=== PATIENT | female | born 1965 | race Caucasian/White ===

== ENCOUNTER 2016-08-27 15:35 | Inpatient (IN) | payer OTHER ==
[~2016-08-27] VITALS: Ht 175.3 cm; Wt 90.0 kg
[2016-08-27 16:35] LABS: ADD SCAN DIFF NO
[2016-08-27 16:39] LABS: BASOPHILS % 0.3 % (0.0-2.0); EOSINOPHILS # 0.1 10^3/ul (0.0-0.5); HEMATOCRIT 38.4 % (37.0-47.0); HEMOGLOBIN 13.2 g/dl (12.0-16.0); LYMPHOCYTES # 1.8 10^3/ul (0.8-2.9); LYMPHOCYTES % 19.9 % (15.0-51.0); MEAN CORPUSCULAR HEMOGLOBIN 29.5 pg (29.0-33.0); MEAN CORPUSCULAR HGB CONC 34.4 g/dl (32.0-37.0); MEAN CORPUSCULAR VOLUME 85.9 fl (82.0-101.0); MEAN PLATELET VOLUME 9.6 fl (7.4-10.4); MONOCYTE # 0.8 10^3/ul (0.3-0.9); MONOCYTES % 8.4 % (0.0-11.0); NEUTROPHIL # 6.3 10^3/ul (1.6-7.5); PLATELET COUNT 283 10^3/UL (140-415); RED BLOOD COUNT 4.47 10^6/ul (4.20-5.40); RED CELL DISTRIBUTION WIDTH 12.9 % (11.5-14.5); WHITE BLOOD COUNT 9.1 10^3/ul (4.8-10.8)
[2016-08-27] MEDS: SOD CHLORIDE 0.9% 1,000 ML IV SCH ×2 (17:00→21:40)
--- NOTE | 2016-08-27 17:01 | ERD ---
ER Documentation Chief Complaint Date/Time DATE: 08/27/16 TIME: 16:58 Chief Complaint FROM [facility] [place]Y [place]GERY HPI Patient is a 51-year-old female with a past medical history of diabetes and hypertension who presents to the ED for lab work prior to receiving surgery today. Patient states that she was sent here from her doctor, . Patient denies fever or chills. Patient states that she has an ankle fracture and will be having surgery. Denies numbness or tingling. She has no other complaints. ROS All systems reviewed and are negative except as per history of present illness. PMhx/Soc Medical and Surgical Hx: pt denies Medical Hx, pt denies Surgical Hx History of Surgery: No Anesthesia Reaction: No Hx Neurological Disorder: No Hx Respiratory Disorders: No Hx Cardiac Disorders: Yes (Hypertension) Hx Psychiatric Problems: No Hx Miscellaneous Medical Probl: No Hx Alcohol Use: Yes (OCCASIONALLY) Hx Substance Use: Yes (MARAJUANA) Hx Tobacco Use: No Smoking Status: Never smoker FmHx Family History: No coronary disease, No diabetes, No other Physical Exam Vitals Vital Signs Date Time Temp Pulse Resp B/P Pulse Ox O2 Delivery O2 Flow Rate FiO2 08/27/16 15:40 98.2 64 20 167/84 99 Physical Exam GENERAL: Well-developed, well-nourished female. Appears in no acute distress. HEAD: Normocephalic, atraumatic. EYES: Pupils are equally reactive bilaterally. EOMs grossly intact. No conjunctival erythema. ENT: Moist mucous membranes. No uvula deviation. No kissing tonsils. No exudates. NECK: Supple. No lymphadenopathy or thyromegaly. No meningismus. negative kernig. negative brudinski. LUNG: Clear to auscultation bilaterally. No rhonchi, wheezing, rales or coarse breath sounds. HEART: Regular rate and rhythm. No murmurs, rubs or gallops. Extremities:patient has a long leg splint. NEUROLOGIC: Alert and oriented. SKIN: Normal color. Warm and dry. No rashes or lesions. Capillary refill < 2 seconds Result Diagram: 08/27/16 1630 Results 24 hrs Laboratory Tests Test 08/27/16 16:30 White Blood Count 9.110^3/ul Red Blood Count 4.4710^6/ul Hemoglobin 13.2g/dl Hematocrit 38.4% Mean Corpuscular Volume 85.9fl Mean Corpuscular Hemoglobin 29.5pg Mean Corpuscular Hemoglobin Concent 34.4g/dl Red Cell Distribution Width 12.9% Platelet Count 25053^3/UL Mean Platelet Volume 9.6fl Neutrophils % 70.0% Lymphocytes % 19.9% Monocytes % 8.4% Eosinophils % 1.0% Basophils % 0.3% Nucleated Red Blood Cells % 0.0/100WBC Neutrophils # 6.310^3/ul Lymphocytes # 1.810^3/ul Monocytes # 0.810^3/ul Eosinophils # 0.110^3/ul Basophils # 0.010^3/ul Nucleated Red Blood Cells # 0.010^3/ul Current Medications Medications (Trade) Dose Ordered Sig/Linda Route PRN Reason Start Time Stop Time Status Last Admin Dose Admin Sodium Chloride (NS) 1,000 ml @ 200 mls/hr Q5H IV 08/27/16 17:00 Procedures/MDM ER COURSE: I kept the patient and/or family informed of laboratory and diagnostic imaging results throughout the emergency room course. MEDICAL DECISION MAKING: This is a 51-year-old female who presents with labwork for surgery. Vital signs were reviewed. Patient is afebrile. Patient is not hypoxic. Patient is nontoxic or ill-appearing. I spoke with her orthopedic surgeon Dr Mcclellan who stated that patient will be admitted to medicine and will be medically cleared there. Blood work, EKG and chest x-ray were ordered. I spoke with my supervising physician Dr. pruitt who will admit patient. patient is stable at transfer to ED1. I explained the plan to patient who understood and agreed. Patient did not have any questions prior to transfer to ED 1 Departure Diagnosis: Primary Impression: Encounter for laboratory test Condition: Stable MARY ANDUJAR PA-C Aug 27, 2016 17:01
[2016-08-27 17:10] LABS: ALBUMIN/GLOBULIN RATIO 1.78; BILIRUBIN,INDIRECT 0.5 mg/dl (0-1.1); BILIRUBIN,TOTAL 0.5 mg/dl (0.2-1.3); CALCIUM 9.6 mg/dl (8.4-10.2); CREATININE 0.9 mg/dl (0.44-1.00); POTASSIUM 3.7 mmol/L (3.5-5.1); TOTAL PROTEIN 7.8 g/dl (6.1-8.1)
[2016-08-27 17:21] LABS: ADD UMIC NO; UR ASCORBIC ACID NEGATIVE (NEGATIVE); UR BILIRUBIN (Dip) NEGATIVE (NEGATIVE); UR BLOOD (Dip) NEGATIVE (NEGATIVE); UR CLARITY SLIGHTLY CLOUDY (CLEAR); UR COLOR YELLOW (YELLOW); UR GLUCOSE (Dip) NEGATIVE (NEGATIVE); UR KETONES (Dip) TRACE mg/dL (NEGATIVE); UR LEUKOCYTE ESTERASE (Dip) NEGATIVE Leu/ul (NEGATIVE); UR MUCUS FEW /HPF (NONE SEEN); UR NITRITE (Dip) NEGATIVE (NEGATIVE); UR RBC 2 /HPF (0-5); UR SPECIFIC GRAVITY (Dip) 1.025 (1.003-1.030); UR TOTAL PROTEIN (Dip) NEGATIVE (NEGATIVE); UR UROBILINOGEN (Dip) NEGATIVE (NEGATIVE)
--- NOTE | 2016-08-27 17:29 | RADRPT ---
PROCEDURE: XR Chest. CLINICAL INDICATION: Preop, right ankle fracture TECHNIQUE: AP view of the chest was obtained. COMPARISON: None. FINDINGS: The cardiomediastinal silhouette is within normal limits. The lungs are clear. No pleural effusion or pneumothorax is identified. The visualized osseous structures are intact. IMPRESSION: No of active cardiopulmonary disease. RPTAT: HH .Froy Morales MD, Date Time Electronically viewed and signed by .Froy Morales MD, on 08/27/2016 17:29 .O/
[2016-08-27 17:52] LABS: INR 0.99; PARTIAL THROMBOPLASTIN TIME 26.5 Sec (25.0-35.0); PROTIME 13.1 Sec (12.2-14.2)
[2016-08-27] MEDS ORDERED: HYDROCODONE/APAP (5/325) TAB PO ONE (18:30)
[2016-08-27] MEDS ORDERED: HYDR12.58 PO (18:44)
[2016-08-27] MEDS ORDERED: SPIR100T31 PO (18:45)
[2016-08-27] MEDS ORDERED: ATOR20TA38 PO (18:45)
[2016-08-27] MEDS ORDERED: BUPR-34 PO (18:47)
[2016-08-27] MEDS ORDERED: METF500T4 PO (18:48)
[2016-08-27] MEDS ORDERED: CITA10TA72 PO (18:49)
[2016-08-27 20:01] VITALS: TEMP 97.6
[2016-08-27] MEDS ORDERED: ONDANSETRON 4 MG INJ IV STA (20:04)
[2016-08-27] MEDS ORDERED: morphine 4 MG/ML VIAL IV STA (20:04)
[2016-08-27 20:35] VITALS: BP 133/73; RESP 18
[2016-08-27 20:55] VITALS: Ht 175.3 cm; Wt 90.0 kg
[2016-08-27] MEDS ORDERED: GLUCAGON 1 MG INJ IM PRN (21:30)
[2016-08-27] MEDS ORDERED: GLUCOSE GEL 15 GRAM TUBE BUCCAL PRN (21:30)
[2016-08-27] MEDS ORDERED: GLUCOSE GEL 15 GRAM TUBE PO PRN ×2 (21:30)
[2016-08-27] MEDS ORDERED: DEXTROSE 50% 50 ML SYRINGE IV PRN ×2 (21:30)
[2016-08-27] MEDS: D5W-0.45 NACL + KCL 20 MEQ 1,000 ML IV SCH (21:50)
[2016-08-27] MEDS: morphine 2 MG INJ IV PRN (23:53)
[2016-08-28] VITALS (31 sets, daily range): BP systolic 112–157; BP diastolic 55–80; PULSE 66–102; RESP 11–23
[2016-08-28] MEDS: SOD CHLORIDE 0.9% 1,000 ML IV SCH ×3 (00:04→11:58)
[2016-08-28] MEDS ORDERED: hydrALAzine 20 MG INJ IV PRN ×2 (01:00→14:30)
[2016-08-28] MEDS ORDERED: NACL 0.9% 3 ML SYG IV SCH (01:00)
--- NOTE | 2016-08-28 03:18 | HP ---
DATE OF ADMISSION: 08/27/2016 TIME: 11:45 p.m. CHIEF COMPLAINT: Right ankle pain. HISTORY OF PRESENT ILLNESS: The patient is a 51-year-old female with a history of prediabetes contr olled with lifestyle, depression, dyslipidemia and hypertension. The patient presents for a right a nkle surgery with Dr. Mcclellan. The patient reportedly while wearing high heels, she fell down and ap parently suffered a right ankle fracture. The patient was seen at ____ and was planned for surgery of her right ankle fracture repair surgery tomorrow. The patient's pain is currently controlled wit h morphine. She has no complaints. PAST MEDICAL HISTORY: Depression, non-insulin requiring diabetes, dyslipidemia and hypertension. PAST SURGICAL HISTORY: She states that she has had 2 surgeries in her ears in the past. HOME MEDICATIONS: 1. Atorvastatin. 2. Wellbutrin. 3. Celexa. 4. Hydrochlorothiazide. 5. Metformin. 6. Aldactone. ALLERGIES: NO KNOWN DRUG ALLERGIES. FAMILY HISTORY: Denies. SOCIAL HISTORY: Denies any alcohol, tobacco, or drug abuse. REVIEW OF SYSTEMS: A 12-point review of systems negative except for that as in HPI. PHYSICAL EXAMINATION: VITAL SIGNS: Temperature is 99.2, pulse 79, respiratory rate 18, BP is 155/70, saturation 95% on ro om air. GENERAL: No acute distress, alert and oriented. HEENT: Normocephalic, atraumatic. CHEST: Clear to auscultation. CARDIOVASCULAR: Regular rate and rhythm. ABDOMEN: Nondistended, nontender, soft. EXTREMITIES: No clubbing, cyanosis, or edema. Right leg is in a splint. LABORATORY DATA: CBC within normal limits. BMP within normal limits. INR is normal at 0.99. UA i s within normal limits except for trace ketones. DIAGNOSTICS: Chest x-ray shows no active disease. ASSESSMENT AND PLAN: 1. Right ankle fracture. The patient scheduled for surgery tomorrow with Dr. Mcclellan. The patient has no significant past medical history and does not require any further cardiac workup at this time , and hence benefit of the surgery outweigh the risks. 2. Diabetes. Will put the patient on a sliding scale. 3. Hypertension. The patient will be n.p.o. in anticipation of surgery, and will give the patient hydralazine as needed. 4. Dyslipidemia. Hold statin for now. 5. Depression. Resume her home antidepressant when she is no longer n.p.o. 6. Prophylaxis. Will defer to ortho. Dictated By: NAKUL PADGETT MD BS/NTS Conf#: [id number] DID#: [id number]
[2016-08-28] MEDS: morphine 2 MG INJ IV PRN ×2 (03:19→06:06)
[2016-08-28] MEDS: Insulin NOVOLOG SS MILD Algorithm (NPO/TPN/ENTERAL FEEDS) SC SCH ×3 (06:00→11:57)
[2016-08-28] MEDS: D5W-0.45 NACL + KCL 20 MEQ 1,000 ML IV SCH (07:30)
--- NOTE | 2016-08-28 08:59 | CONS ---
Date/Time of Note Date/Time of Note DATE: 08/28/16 TIME: 08:57 Assessment/Plan Assessment/Plan Additional Assessment/Plan 51 yo female with right ankle fracture dislocation of distal fibula with likely medial mal avulsion fracture, rupture of syndesmosis and deltoid. Patient has a h/o HTN, prediabetes - NPO after mn - admit to medicine and for clearance - plan for orif tomorrow - NWB to the RLAmairani SPEARS MD Consultation Date/Type/Reason Admit Date/Time Aug 27, 2016 at 18:56 Date of Consultation: Aug 28, 2016 Type of Consultation: Orthopedic Surgery Referring Provider: NAKUL PADGETT Hx of Present Illness The patient is a 51-year-old female with a history of prediabetes presenting with a right ankle fracture dislocation that occurred 2 days ago after a fall while chasing her dog. Patient initially went to outside hospital where a reduction was attempted, however presented today with a malreduced ankle fracture with pressure on the medial aspect. Patient in significant pain at this time. Denies f/c/n/v Past Medical History PAST MEDICAL HISTORY: Depression, non-insulin requiring diabetes, dyslipidemia and hypertension. PAST SURGICAL HISTORY: She states that she has had 2 surgeries in her ears in the past. HOME MEDICATIONS: 1. Atorvastatin. 2. Wellbutrin. 3. Celexa. 4. Hydrochlorothiazide. 5. Metformin. 6. Aldactone. ALLERGIES: NO KNOWN DRUG ALLERGIES. FAMILY HISTORY: Denies. SOCIAL HISTORY: Denies any alcohol, tobacco, or drug abuse. REVIEW OF SYSTEMS: A 12-point review of systems negative except for that as in HPI. Social History Smoking Status: Never smoker Exam/Review of Systems Vital Signs Vitals Vital Signs Date Time Temp Pulse Resp B/P Pulse Ox O2 Delivery O2 Flow Rate FiO2 08/28/16 07:00 98.2 73 18 138/80 94 08/28/16 06:13 Room Air Intake and Output 08/27/16 08/27/16 08/28/16 15:00 23:00 07:00 Intake Total 1000 ml Output Total 300 ml Balance 700 ml Exam Constitutional: alert, oriented, well developed Musculoskeletal: other (RLE/ skin intact with blistering medially, moderate swelling, silt to m/l/d/p/fdws, toes wiggle, dp/pt 2+) Results xrays - distal fibular fracture and medial mall avulsion fracture with significant medial mal displacement Result Diagram: 08/27/16 1630 08/27/16 1630 Results 24 hrs Laboratory Tests Test 08/27/16 16:30 08/27/16 16:55 08/27/16 23:52 08/28/16 06:05 White Blood Count 9.1 Red Blood Count 4.47 Hemoglobin 13.2 Hematocrit 38.4 Mean Corpuscular Volume 85.9 Mean Corpuscular Hemoglobin 29.5 Mean Corpuscular Hemoglobin Concent 34.4 Red Cell Distribution Width 12.9 Platelet Count 283 Mean Platelet Volume 9.6 Neutrophils % 70.0 Lymphocytes % 19.9 Monocytes % 8.4 Eosinophils % 1.0 Basophils % 0.3 Nucleated Red Blood Cells % 0.0 Neutrophils # 6.3 Lymphocytes # 1.8 Monocytes # 0.8 Eosinophils # 0.1 Basophils # 0.0 Nucleated Red Blood Cells # 0.0 Prothrombin Time 13.1 Prothrombin Time Ratio 1.0 INR International Normalized Ratio 0.99 Activated Partial Thromboplast Time 26.5 Sodium Level 135 Potassium Level 3.7 Chloride Level 99 Carbon Dioxide Level 26 Anion Gap 14 Blood Urea Nitrogen 14 Creatinine 0.90 Glucose Level 107 Calcium Level 9.6 Total Bilirubin 0.5 Direct Bilirubin 0.00 Indirect Bilirubin 0.5 Aspartate Amino Transf (AST/SGOT) 27 Alanine Aminotransferase (ALT/SGPT) 39 Alkaline Phosphatase 73 Total Protein 7.8 Albumin 5.0 H Globulin 2.80 Albumin/Globulin Ratio 1.78 Lipase 58 Urine Color YELLOW Urine Clarity SLIGHTLY CLOUDY A Urine pH 6.0 Urine Specific [place] 1.025 Urine Ketones TRACE A Urine Nitrite NEGATIVE Urine Bilirubin NEGATIVE Urine Urobilinogen NEGATIVE Urine Leukocyte Esterase NEGATIVE Urine Microscopic RBC 2 Urine Microscopic WBC 1 Urine Mucus FEW A Urine Hemoglobin NEGATIVE Urine Glucose NEGATIVE Urine Total Protein NEGATIVE Bedside Glucose 113 118 Medications Medications Current Medications Sodium Chloride (NS) 1,000 ml @ 200 mls/hr Q5H IV ; Start 08/27/16 at 17:00 Morphine Sulfate (morphine) 2 mg Q3H PRN IV PAIN LEVEL 4-7 Last administered on 08/28/16t 06:06; Admin Dose 2 MG; Start 08/27/16 at 21:30 Ondansetron HCl 4 mg 4 mg Q6H PRN IV NAUSEA AND/OR VOMITING; Start 08/27/16 at 21:30 Potassium Chloride/Dextrose/ Sod Cl (D5-1/2ns + KCl 20 Meq) 1,000 ml @ 100 mls/ hr Q10H IV Last administered on 08/27/16t 21:50; Admin Dose 100 MLS/HR; Start 08/27/16 at 21:30 Miscellaneous Information 1 ea NOTE XX ; Start 08/27/16 at 21:30 Glucose (Glutose) 15 gm Q15M PRN PO DECREASED GLUCOSE; Start 08/27/16 at 21:30 Glucose (Glutose) 22.5 gm Q15M PRN PO DECREASED GLUCOSE; Start 08/27/16 at 21: 30 Dextrose (D50w Syringe) 25 ml Q15M PRN IV DECREASED GLUCOSE; Start 08/27/16 at 21:30 Dextrose (D50w Syringe) 50 ml Q15M PRN IV DECREASED GLUCOSE; Start 08/27/16 at 21:30 Glucagon (Glucagen) 1 mg Q15M PRN IM DECREASED GLUCOSE; Start 08/27/16 at 21:30 Glucose (Glutose) 15 gm Q15M PRN BUCCAL DECREASED GLUCOSE; Start 08/27/16 at 21 :30 Insulin Aspart (Novolog Insulin Pen) (Adult SC Insulin - Mild Algorithm)... Q6 SC ; Start 08/28/16 at 00:00 Hydralazine HCl (Apresoline) 10 mg Q4H PRN IV SBP>170; Start 08/28/16 at 01:00 NORIS SPEARS MD Aug 28, 2016 08:58
[2016-08-28] MEDS ORDERED: MIDAZOLAM 1 MG/ML 2 ML INJ ONE (09:39)
[2016-08-28] MEDS ORDERED: SUCCINYLCHOLINE CHLORIDE 100 MG/5 ML SYG IV ONE (09:39)
[2016-08-28] MEDS ORDERED: BUPIVACAINE 0.5% (SDV) 30 ML INJ ONE (09:39)
[2016-08-28] MEDS ORDERED: PROPOFOL 20 ML ONE ×2 (09:39→12:31)
[2016-08-28] MEDS ORDERED: ROCURONIUM 50 MG INJ ONE (09:39)
[2016-08-28] MEDS ORDERED: LIDOCAINE 2% (SDV) 5 ML INJ ONE (09:39)
[2016-08-28] MEDS ORDERED: ROPIVACAINE 0.5 % 30 ML VIAL ONE ×2 (09:41→12:54)
[2016-08-28] MEDS ORDERED: FENTAnyl 50 MCG/ML VIAL ONE (10:47)
[2016-08-28] MEDS ORDERED: CEFAZOLIN 1 GM INJ ONE (11:05)
[2016-08-28] MEDS ORDERED: POLYMYXIN/BACITRACIN 1L IRRIG IRR ONE (11:36)
[2016-08-28] MEDS ORDERED: ONDANSETRON 4 MG INJ ONE (11:47)
[2016-08-28] MEDS ORDERED: FAMOTIDINE 20 MG INJ ONE (11:47)
[2016-08-28] MEDS ORDERED: METOCLOPRAMIDE 10 MG INJ ONE (11:47)
[2016-08-28] MEDS ORDERED: HYDROmorphONE 2 MG/ML SYG ONE (12:31)
[2016-08-28] MEDS ORDERED: GLYCOPYRROLATE 0.4 MG INJ ONE (12:55)
[2016-08-28] MEDS ORDERED: NEOSTIGMINE 3 MG/3 ML SYRINGE ONE ×2 (12:55→12:56)
[2016-08-28] MEDS ORDERED: MEPERIDINE 25 MG INJ IV PRN (13:00)
[2016-08-28] MEDS ORDERED: DIPHENHYDRAMINE 50 MG INJ IV PRN (13:00)
[2016-08-28] MEDS ORDERED: FENTAnyl 50 MCG/ML VIAL IV PRN (13:00)
[2016-08-28] MEDS ORDERED: ONDANSETRON 4 MG INJ IV PRN ×2 (13:00→15:30)
[2016-08-28] MEDS ORDERED: PROCHLORPERAZINE 10 MG INJ IV PRN (13:00)
[2016-08-28] MEDS ORDERED: HYDROmorphONE (0.2 MG/ML) 10ML SYG IV PRN ×3 (13:00)
[2016-08-28] MEDS ORDERED: BACITRACIN 0.9 GM OINT ONE (13:14)
[2016-08-28] MEDS ORDERED: BACITRACIN/POLYMYXIN 28.35 GM OINT TOP ONE (13:16)
[2016-08-28] MEDS ORDERED: ALBUTEROL 0.083% (NEB) 2.5 MG/3 ML AMP ONE (13:35)
[2016-08-28] MEDS: ONDANSETRON 4 MG INJ IV PRN ×2 (14:09→18:49)
[2016-08-28] MEDS ORDERED: LABETALOL HCL 20MG INJ IV PRN (14:30)
[2016-08-28] MEDS ORDERED: ACETAMINOPHEN 1000MG/100ML IV 100 ML IVPB ONE (14:30)
--- NOTE | 2016-08-28 14:47 | RADRPT ---
PROCEDURE: Intraoperative imaging of the right ankle with fluoroscopy. CLINICAL INDICATION: Right ankle pain. Intraoperative. TECHNIQUE: 10 images of the right ankle were obtained in the operating room with an image intensif ier. No radiologist was in attendance. 1.3 minutes of fluoroscopy time was used. COMPARISON: No prior study is available for comparison. FINDINGS: Images demonstrate open reduction and internal fixation with a plate and multiple screws transfixing the distal fibula and 2 metal devices transfixing the distal tibia and fibula. IMPRESSION: 1. Intraoperative imaging of the right ankle. RPTAT: QQ .Nabeel Nicole MD, Date Time Electronically viewed and signed by .Nabeel Nicole MD, on 08/28/2016 14:47 .R/
--- NOTE | 2016-08-28 15:24 | OPR ---
Date/Time of Note Date/Time of Note DATE: 08/28/16 TIME: 15:21 Operative Report Preoperative Diagnosis Right ankle fracture/dislocation with fracture of lateral malleolus Right ankle syndesmotic disruption Right ankle deltoid rupture Postoperative Diagnosis Right ankle fracture/dislocation with fracture of lateral malleolus Right ankle syndesmotic disruption Right ankle deltoid rupture Right medial talar dome osteochondral defect Operation/Procedure Performed Right ankle lateral malleolus ORIF Right ankle syndesmosis ORIF Right ankle deltoid repair - deep and superficial Surgeon: NORIS SPEARS MD Anesthesia: general, other (popliteal, saphenous) Estimated Blood Loss: 0 - 10 ml's Grafts/Implants arthrex distal fibular locking plate with 2 tight ropes arthrex 2 mini suture taks for deltoid repair TT- 105 at 250 mmHg Complications: None NORIS SPEARS MD Aug 28, 2016 15:24
[2016-08-28] MEDS ORDERED: CEFAZOLIN 1 GM INJ IV SCH (15:30)
[2016-08-28] MEDS ORDERED: morphine 10 MG INJ IV PRN (15:30)
[2016-08-28] MEDS ORDERED: DIPHENHYDRAMINE 25 MG CAP PO PRN (15:30)
[2016-08-28] MEDS ORDERED: INSULIN ASPART [NOVOLOG] 3 ML PEN SC SCH ×2 (17:25)
[2016-08-28] MEDS ORDERED: LACTATED RINGER'S 1,000 ML IV SCH (17:30)
[2016-08-28] MEDS: ATORVASTATIN 20 MG TAB PO SCH (17:30)
[2016-08-28] MEDS: CITALOPRAM 20 MG TAB PO SCH (17:30)
[2016-08-28] MEDS: CEFAZOLIN 2 GM/50 ML (PMX) 50 ML IVPB SCH (18:44)
[2016-08-28] MEDS: OXYCODONE/ACETAMINOPHEN (10/325) TAB PO PRN ×2 (18:50→22:38)
[2016-08-28] MEDS: Insulin NOVOLOG SS MILD Algorithm (SS with meals and bedtime) SC SCH (20:40)
[2016-08-28] MEDS ORDERED: INSULIN GLARGINE [LANtus] 3 ML PEN SC SCH (21:00)
--- NOTE | 2016-08-28 23:59 | PN ---
Date/Time of Note Date/Time of Note DATE: 08/28/16 TIME: 23:59 Assessment/Plan VTE Prophylaxis VTE Prophylaxis Intervention: other (aspirin) Lines/Catheters IV Catheter Type (from Nrsg): Saline Lock Urinary Cath still in place: Yes Assessment/Plan Assessment/Plan 1. Right ankle fracture. s/p ORIF - cont pain mgmt - DVT ppx per Ortho 2. Diabetes. A1C 6.3. cont sliding scale. will add lantus 3. Hypertension. adjust med as needed. 4. Dyslipidemia. lipid panel within acceptable range. cont statin 5. Depression. Resume her home antidepressant Subjective 24 Hr Interval Summary Free Text/Dictation c/o intermittent pain at surgical site Exam/Review of Systems Vital Signs Vitals Vital Signs Date Time Temp Pulse Resp B/P Pulse Ox O2 Delivery O2 Flow Rate FiO2 08/28/16 22:45 73 18 133/66 97 Nasal Cannula 08/28/16 19:30 97.8 08/28/16 15:07 3.0 Intake and Output 08/27/16 08/27/16 08/28/16 15:00 23:00 07:00 Intake Total 1000 ml Output Total 300 ml Balance 700 ml Exam Constitutional: alert, oriented Head: atraumatic, normocephalic Eyes: EOMI, PERRL Respiratory: clear to auscultation, normal air movement Cardiovascular: nl pulses, regular rate and rhythm Gastrointestinal: non-tender, soft Extremities: other Results Result Diagram: 08/27/16 1630 08/27/16 1630 Results 24 hrs Laboratory Tests Test 08/28/16 06:05 08/28/16 14:06 08/28/16 17:48 08/28/16 20:40 Bedside Glucose 118 137 108 112 Medications Medications Current Medications Ondansetron HCl (Zofran Inj) 4 mg Q6H PRN IV NAUSEA AND/OR VOMITING Last administered on 08/28/16t 18:49; Admin Dose 4 MG; Start 08/27/16 at 21:30 Miscellaneous Information 1 ea NOTE XX ; Start 08/27/16 at 21:30 Glucose (Glutose) 15 gm Q15M PRN PO DECREASED GLUCOSE; Start 08/27/16 at 21:30 Glucose (Glutose) 22.5 gm Q15M PRN PO DECREASED GLUCOSE; Start 08/27/16 at 21: 30 Dextrose (D50w Syringe) 25 ml Q15M PRN IV DECREASED GLUCOSE; Start 08/27/16 at 21:30 Dextrose (D50w Syringe) 50 ml Q15M PRN IV DECREASED GLUCOSE; Start 08/27/16 at 21:30 Glucagon (Glucagen) 1 mg Q15M PRN IM DECREASED GLUCOSE; Start 08/27/16 at 21:30 Glucose (Glutose) 15 gm Q15M PRN BUCCAL DECREASED GLUCOSE; Start 08/27/16 at 21 :30 Hydralazine HCl (Apresoline) 10 mg Q4H PRN IV SBP>170; Start 08/28/16 at 01:00 Morphine Sulfate (morphine) 5 mg Q4H PRN IV PAIN LEVEL 7-10; Start 08/28/16 at 15:30 Ondansetron HCl (Zofran Inj) 4 mg Q4H PRN IV NAUSEA AND/OR VOMITING; Start at 15:30 Diphenhydramine HCl (Benadryl) 25 mg Q4H PRN PO ITCHING; Start 08/28/16 at 15: 30 Oxycodone/ Acetaminophen (Endocet (10/ 325)) 1 tab Q4H PRN PO PAIN Last administered on 08/28/16 22:38; Admin Dose 1 TAB; Start 08/28/16 at 15:30 Aspirin 325 mg 325 mg DAILY PO ; Start 08/29/16 at 09:00 Cefazolin Sodium/ Dextrose 50 ml @ 100 mls/hr Q8H IVPB Last administered on 18:44; Admin Dose 100 MLS/HR; Start 08/28/16 at 19:00; Stop 08/30/16 at 11:29 Lactated Ringer's (Lr) 1,000 ml @ 0 mls/hr Q0M IV Last administered on 17:49; Admin Dose 20 MLS/HR; Start 08/28/16 at 17:30 Insulin Glargine (Lantus) 10 unit QHS SC ; Start 08/28/16 at 21:00 Atorvastatin Calcium (Lipitor) 20 mg QAM PO ; Start 08/28/16 at 17:30 Bupropion HCl (Wellbutrin Sr) 150 mg QAM PO ; Start 08/29/16 at 09:00 Citalopram Hydrobromide (Celexa) 10 mg QAM PO ; Start 08/28/16 at 17:30 Spironolactone (Aldactone) 100 mg DAILY@06 PO ; Start 08/29/16 at 06:00 Diagnostic Test (Pha) (Accu-Chek) 1 ea 02 XX ; Start 08/29/16 at 02:00 Senna (Senokot) 1 tab BID PO ; Start 08/29/16 at 09:00; Status UNV Docusate Sodium (Colace) 100 mg BID PRN PO constipation; Start 08/29/16 at 00: 00; Status UNV SADAF SNYDER MD Aug 28, 2016 23:59
[2016-08-29] VITALS: BP 119/62; RESP 18
[2016-08-29] MEDS ORDERED: DOCUSATE SODIUM 100 MG CAP PO PRN
[2016-08-29] MEDS ORDERED: ACCUCHECK AT 2AM (Patients on SS coverage) XX SCH (02:00)
[2016-08-29] MEDS: CEFAZOLIN 2 GM/50 ML (PMX) 50 ML IVPB SCH ×2 (03:06→11:00)
[2016-08-29] MEDS: OXYCODONE/ACETAMINOPHEN (10/325) TAB PO PRN ×4 (03:08→14:48)
[2016-08-29 05:09] LABS: ADD SCAN DIFF NO
[2016-08-29 05:20] LABS: BASOPHILS % 0.3 % (0.0-2.0); EOSINOPHILS # 0.1 10^3/ul (0.0-0.5); EOSINOPHILS % 1.3 % (0.0-7.0); HEMATOCRIT 34.2 % (37.0-47.0); HEMOGLOBIN 11.2 g/dl (12.0-16.0); LYMPHOCYTES % 26.1 % (15.0-51.0); MEAN CORPUSCULAR HEMOGLOBIN 29.3 pg (29.0-33.0); MEAN CORPUSCULAR HGB CONC 32.7 g/dl (32.0-37.0); MEAN CORPUSCULAR VOLUME 89.5 fl (82.0-101.0); MEAN PLATELET VOLUME 9.8 fl (7.4-10.4); MONOCYTE # 0.8 10^3/ul (0.3-0.9); MONOCYTES % 10.4 % (0.0-11.0); NEUTROPHIL # 4.7 10^3/ul (1.6-7.5); NEUTROPHILS % 61.6 % (39.0-77.0); PLATELET COUNT 220 10^3/UL (140-415); RED BLOOD COUNT 3.82 10^6/ul (4.20-5.40); RED CELL DISTRIBUTION WIDTH 12.9 % (11.5-14.5); WHITE BLOOD COUNT 7.6 10^3/ul (4.8-10.8)
[2016-08-29 05:30] VITALS: BP 133/65; PULSE 70; RESP 18
[2016-08-29 05:48] LABS: CALCIUM 9.1 mg/dl (8.4-10.2); CREATININE 0.94 mg/dl (0.44-1.00); MAGNESIUM 1.9 mg/dl (1.7-2.5); PHOSPHORUS 4.5 mg/dl (2.5-4.9); POTASSIUM 3.8 mmol/L (3.5-5.1)
[2016-08-29] MEDS ORDERED: SPIRONOLACTONE 50 MG TAB PO SCH (06:00)
[2016-08-29 07:00] VITALS: BP 129/62; RESP 18
[2016-08-29] MEDS: Insulin NOVOLOG SS MILD Algorithm (SS with meals and bedtime) SC SCH ×2 (07:20→11:10)
--- NOTE | 2016-08-29 08:36 | PN ---
Date/Time of Note Date/Time of Note DATE: 08/29/16 TIME: 08:34 Assessment/Plan Lines/Catheters IV Catheter Type (from Nrsg): Saline Lock Cabezas in Place (from Nrsg): Yes Assessment/Plan Assessment/Plan POD# 1 S/p Right ankle lateral malleolus ORIF, syndesmosis ORIF, Deltoid ligament repair, removal of loose bodies from ankle - NWB to the RLE - PT to GT - PO pain control. DC home with percocet 10/325 - dc home with ASA 325 to take daily - keep elevated - to follow up with me in 1 week. ---- Amairani Spears MD Subjective 24 Hr Interval Summary Doing very well this morning. Pain is well controlled. No f/c/n/v Constitutional: no complaints Feeding: advancing diet Pain Control: well controlled Exam/Review of Systems Vital Signs Vitals Vital Signs Date Time Temp Pulse Resp B/P Pulse Ox O2 Delivery O2 Flow Rate FiO2 08/29/16 07:00 98.7 63 18 129/62 98 08/29/16 05:30 Room Air 08/28/16 15:07 3.0 Intake and Output 08/28/16 08/28/16 08/29/16 15:00 23:00 07:00 Intake Total 2200 ml 200 ml 1820 ml Output Total 1070 ml 300 ml 2600 ml Balance 1130 ml -100 ml -780 ml Exam Constitutional: alert, oriented, well developed Musculoskeletal: other (RLE/ splint intact. toes wiggle. CR Brisk, toes wwp, silt to the exposed toes) Results Result Diagram: 08/29/16 0457 08/29/16 0457 NORIS SPEARS MD Aug 29, 2016 08:36
--- NOTE | 2016-08-29 08:37 | PDOCDIS ---
Discharge Instructions CONDITION Patient Condition: Good HOME CARE INSTRUCTIONS: Diet Instructions: Special Diet: CARB CONTROLLED ACTIVITY: Activity Restrictions: Avoid heavy lifting Do not Drive Do not operate Machinery Do not operate Power Tool No Weight Bearing (to RLE) Bathing Restrictions: Shower FOLLOW UP/APPOINTMENTS Follow-up Plan 1 week with NORIS Dodson MD Aug 29, 2016 08:37
[2016-08-29] MEDS ORDERED: ASPI325T32 PO (08:38)
[2016-08-29] MEDS ORDERED: OXYC-431 PO (08:38)
[2016-08-29] MEDS: CITALOPRAM 20 MG TAB PO SCH (08:49)
[2016-08-29] MEDS: ATORVASTATIN 20 MG TAB PO SCH (08:49)
[2016-08-29] MEDS ORDERED: ASPIRIN (EC) 325 MG TAB PO SCH (09:00)
[2016-08-29] MEDS ORDERED: SENNA TAB PO SCH (09:00)
[2016-08-29] MEDS ORDERED: BUPROPION (SR) 150 MG TAB PO SCH (09:00)
--- NOTE | 2016-08-30 11:11 | OPR ---
DATE OF OPERATION: 08/28/2016 PREOPERATIVE DIAGNOSIS: 1. Right ankle fracture dislocation with lateral malleolar ankle fracture. 2. Right ankle syndesmotic disruption. 3. Right ankle deltoid tear. POSTOPERATIVE DIAGNOSES: 1. Right ankle fracture dislocation with lateral malleolar ankle fracture and anterior colliculus fracture of the medial malleolus, bimalleolar ankle fracture. 2. Right ankle syndesmotic disruption. 3. Right deltoid disruption of the deep and superficial deltoid ligament. 4. Right ankle anterior medial talus osteochondral defect. OPERATION PERFORMED: 1. Right ankle open reduction internal fixation of the lateral malleolus fracture in the setting of bimalleolar ankle fracture. 2. Right ankle syndesmotic open reduction. 3. Right ankle superficial and deep deltoid repair. 4. Right ankle open removal of loose bodies of the ankle joint SURGEON: Jadiel Mcclellan MD ANESTHESIA: General with popliteal and saphenous block, ANESTHESIOLOGIST: Daksha Tran MD TOURNIQUET TIME: 105 minutes at 250 mmHg. SPECIMENS: None. COMPLICATIONS: DRAINS: None. IMPLANTS: 1. 2 Arthrex titanium TightRopes. 2. Arthrex Bio Suture Taks 3. Arthrex Titanium distal fibular locking plate INDICATIONS: The patient is a 51-year-old female who sustained a right ankle fracture dislocation while chasing her dog, initially seen at emergency room 3 days ago and reduction was attempted; however, on presentation to my clinic 1 day ago, the patient's ankle is still significantly displaced medially and required urgent reduction and fixation. Given the amount of pressure the medial malleolar displaced fracture was putting on the skin, thus patient was recommended for surgery. RISK NOTE: The patient was explained the risks and benefits of surgery in the patient's ekw[place] language including, but not limited to infection, bleeding, loss of limb, loss of life, need for future surgery, risk of arthritis, risk of blood clot, risk of injury to the blood vessels, nerves, ligaments or tendons. The patient acknowledges and signed surgical consent form. OPERATIVE NOTE: The patient was identified in the preoperative holding area. The correct operative extremity was marked and confirmed with both patient and consent. The patient was given preoperative regional block anesthesia. The patient was then brought back in the operative theater, placed supine on operative table and given preoperative regional antibiotics. Patient was then prepped and draped in normal sterile fashion. A timeout was taken and all parties in the room agreed it was correct patient, correct extremity, correct procedure. Tourniquet was brought to 250 mmHg, and incision was made over the lateral malleolus. Fracture site was identified. Hematoma was irrigated out thoroughly and the fracture was reduced and held in place and shown to be brought out to length, alignement and rotation on fluoroscopy. One 3.0 mm lag screw was placed across the fracture from the anterior to posterior correction followed by the Arthrex distal fibular locking plate placed over the fracture site, initially fixed proximally and then fixed distally with locking screws. The ankle mortise was shown to be well reduced and on manual external rotation stress test, shown to have substantial medial clear space widening. Thus, 2 Arthrex titanium TightRopes were then placed across the syndesmosis in slightly diverging fashion while the ankle was held in reduction with a large reduction tenaculum while the ankle was put into a neutral position. Once these TightRopes were then cinched down, closing down the syndesmotic widening , the ankle was then stressed with the talar tilt showing that there was still disruption of the medial aspect of the ankle where the deltoid appeared to be disrupted. Once attention was then turned to the medial side of the ankle, the incision was made over the medial malleolus and the anterior colliculus chip was found to be fractured off and in soft tissue, but the piece was quite small and comminuted, measuring approximately 2 cm and not able to be fixated, thus the small fracture piece was removed. Also noted were cartilage fragments from the anterior medial aspect of the talar dome of the ankle which were removed, measuring approximately 1.2 cm. The ankle joint was irrigated thoroughly. Hematoma was removed from the ankle joint. The sharp edge of the anterior colliculus where the chip fracture had been seen was rasped down to create a smooth edge. The deltoid was found to be completed ruptured in the mid portion , both from the deep and superficial fibers. The wound was further irrigated and 2 Arthrex mini suture taks were then placed in the medial malleolus and the deep and superficial were then repaired in a pants over vest fashion and the ankle and deltoid were reduced into an anatomic position. I then oversewed both with 2-0 FiberWire deep and superficial as well. The x-rays then reconfirmed both in the AP, oblique and lateral position that the ankle was well reduced and length, alignment and rotation had been well achieved and the medial-sided joint space had been reduced back into its correct position. All wounds were irrigated thoroughly and closed in layers with 2-0 Vicryl, followed by 3-0 Monocryl followed by 4-0 nylon on the medial side and 3-0 nylon in a vertical mattress on the lateral side. Wounds were then dressed with Xeroform, triple antibiotic ointment and patient was placed in a well-padded short leg splint in the neutral position and with 5 ABDs. The patient was awakened and taken to PACU in stable condition. All sponge and needle counts were correct at the end of the case. The toes were all warm and well perfused at the end of the case. Dictated By: JADIEL ROCHE/MARY Conf#: [id number] DID#: [id number] MTDD
[2016-09-01 00:51] VITALS: BP 157/74; RESP 20
== END 2016-08-29 17:15 | disposition home or self-care (01) | DRG 494 ==
LOC: FTE 15:35 → MS1 18:56
PROVIDERS: ADMIT Internal Medicine; ATTEND Internal Medicine
PROC: 0QSJ0ZZ Reposition Right Fibula, Open Approach (ICD-10-PCS; principal; 2016-08-28 10:30)
DX: S82.61XA Displaced fracture of lateral malleolus of right fibula, initial encounter for closed fracture (principal); I10 Essential (primary) hypertension; E66.9 Obesity, unspecified; Z68.29 Body mass index [BMI] 29.0-29.9, adult; E78.5 Hyperlipidemia, unspecified; E11.9 Type 2 diabetes mellitus without complications; F32.9 Major depressive disorder, single episode, unspecified; X58.XXXA Exposure to other specified factors, initial encounter; Y92.009 Unspecified place in unspecified non-institutional (private) residence as the place of occurrence of the external cause
CPT/HCPCS: 71010; 80048; 80053; 80061; 81001; 81003; 82306; 82962; 83036; 83690; 83735; 84100; 85025; 85610; 85730; 93005; 97163; J0131; J0690; J0780; J1170; J1815; J2250; J2270; J2405; J2710; J2765; J2795; J3010; J3480; J7030; J7999